=== PATIENT | female | born 1940 | race Caucasian/White ===

== ENCOUNTER 2020-10-10 00:33 | Day surgery (SDCO) | payer MEDICARE, OTHER ==
[2020-10-10 01:04] LABS: BASOPHIL 0.2 % (0-2); EOSINOPHIL 0.1 % (0-7); HGB 11.1 g/dl (12.5-16.0); LYMPHOCYTE 7.7 % (15-48); MCHC 34.7 g/dL (32.0-36.0); MCV 92.2 fL (78.0-100.0); MONOCYTE 4.4 % (0-12); NRBC 0; PLT 399 K/uL (150-400); RBC 3.47 M/uL (4.20-5.40); RDW 11.9 % (11.5-14.0); WBC 12.6 K/uL (4.0-10.5)
[2020-10-10 01:16] LABS: ALBUMIN 3.9 g/dL (3.4-5.0); BILIRUBIN - TOTAL 0.5 mg/dL (0.2-1.0); BUN/CREAT RATIO (CALC) 19.4 RATIO; CREATININE 0.62 mg/dL (0.51-0.95); GLOBULIN (CALCULATION) 3.5 g/dL; POTASSIUM 3.7 mmol/L (3.5-5.1); TOTAL PROTEIN 7.4 g/dL (6.4-8.2)
[2020-10-10 02:09] LABS: MAGNESIUM 1.8 mg/dL (1.8-2.4); PHOSPHORUS 2.9 mg/dL (2.6-4.7)
[2020-10-10] MEDS ORDERED: PRINIVIL20 MG PO (03:18)
[2020-10-10] MEDS ORDERED: LOPRESSOR25 MG PO (03:18)
[2020-10-10] MEDS ORDERED: ULTRAM50 MG PO (07:12)
[2020-10-10 07:32] LABS: BUN/CREAT RATIO (CALC) 13.2 RATIO; CREATININE 0.68 mg/dL (0.51-0.95); POTASSIUM 4.1 mmol/L (3.5-5.1)
[2020-10-10 07:36] LABS: BILIRUBIN NEGATIVE (NEGATIVE); BLOOD TRACE-LYSED Ery/uL (NEGATIVE); CLARITY CLEAR (CLEAR); COLOR YELLOW (YELLOW); GLUCOSE (U) NORMAL (NORMAL); LEUKOCYTES NEGATIVE Leu/uL (NEGATIVE); NITRITE NEGATIVE (NEGATIVE); PROTEIN NEGATIVE (NEGATIVE); SPECIFIC GRAVITY <=1.005 (1.001-1.030); UROBILINOGEN 0.2 mg/dL (0.2-1.0)
[2020-10-10 08:12] LABS: AMORPHOUS PHOSPHATE CRYSTALS MODERATE; BACTERIA TRACE; URINARY RBC RARE
--- NOTE | 2020-10-10 12:07 | NUR ---
MET WITH PT. SHE REPORTS THAT SHE RESIDES WITH HER . SHE STATES THAT SHE IS UNDER THE CARE OF A DR. TOVAR [facility]. SHE STATES THAT SHE IS INDEPENDENT AT HOME AND DOES NOT USE ANY DME. PT. STATES THAT SHE IS GOING HOME TODAY. CONSULTED OCTAVIANO FORMAN. SHE STATES THAT THAT PT. IS NOT GOING HOME TODAY HER SODIUM IS HIGH.
[2020-10-10] MEDS ORDERED: ZOFRAN4 M1 PO (12:15)
--- NOTE | 2020-10-10 12:53 | NUR ---
PER OCTAVIANO FORMAN. PT. WILL BE GOING HOME THIS DATE PER DR. GUTIERREZ. PT WILL HAVE NO NEEDS.
== END 2020-10-10 13:05 | disposition home or self-care (01) ==
LOC: FER 00:33 → FMS 01:49
PROVIDERS: Emergency Medicine; Nurse Practitioner; ADMIT Internal Medicine
DX: E87.1 Hypo-osmolality and hyponatremia (principal); I10 Essential (primary) hypertension; I82.409 Acute embolism and thrombosis of unspecified deep veins of unspecified lower extremity; Z88.0 Allergy status to penicillin; Z88.2 Allergy status to sulfonamides; Z88.5 Allergy status to narcotic agent; Z79.899 Other long term (current) drug therapy; Z82.3 Family history of stroke; Z20.822 Contact with and (suspected) exposure to COVID-19
CPT/HCPCS: 36415; 80048; 80053; 81001; 83605; 83735; 84100; 84145; 85025; C9113; G0378; J0780; J1650; J1885; J2405; J7030; J7040; U0002